=== PATIENT | female | born 1945 | race Hispanic/Latino ===

== ENCOUNTER 2020-08-02 14:49 | Inpatient (IN) | payer MEDICARE ==
[2020-08-02 17:09] LABS: Basophils # (Auto) 0.1 K/mm3 (0.0-0.1); Eosinophils # (Auto) 0.1 K/mm3 (0.0-0.4); Eosinophils % (Auto) 1.1 % (0.0-4.3); Hematocrit 37.6 % (30.3-42.9); Hemoglobin 12.2 gm/dl (10.1-14.3); Lymphocytes # (Auto) 0.9 K/mm3 (1.2-5.4); Lymphocytes % (Auto) 17.6 % (13.4-35.0); Mean Corpuscular HGB Conc 33 % (30-34); Mean Corpuscular Volume 87 fl (79-97); Monocytes # (Auto) 0.5 K/mm3 (0.0-0.8); Monocytes % (Auto) 9.9 % (0.0-7.3); Platelet Count 145 K/mm3 (140-440); Red Blood Count 4.33 M/mm3 (3.65-5.03)
--- NOTE | 2020-08-02 17:16 | XRay Report ---
CHEST 1 VIEW INDICATION / CLINICAL INFORMATION: Chest Pain. COMPARISON: None available. FINDINGS: SUPPORT DEVICES: None. HEART / MEDIASTINUM: Cardiomegaly LUNGS / PLEURA: Mild pulmonary vascular congestion No pneumothorax. ADDITIONAL FINDINGS: No significant additional findings. IMPRESSION: Joaquim farooq with mild pulmonary vascular congestion Signer Name: Amador Conley MD FACR Signed: 08/02/2020 5:12 PM Workstation Name: [id number]
[2020-08-02 17:25] LABS: Albumin 3.4 g/dL (3.9-5); Calcium 8.6 mg/dL (8.4-10.2)
[2020-08-02] MEDS ORDERED: ALBUTEROL 2.5 MG/3 ML NEBU IH PRN (17:37)
[2020-08-02] MEDS ORDERED: ACETAMINOPHEN 325 MG TAB PO PRN ×2 (17:37→17:43)
--- NOTE | 2020-08-02 17:37 | History and Physical Report ---
History of Present Illness Chief complaint: I feel out of breath all the time History of present illness: 74 YO Female with HTN, HLD, Obesity Hypoventilation Syndrome, Insomnia, BLE Cellulitis on oral antibiotic therapy as outpatient presents to ED for evaluation. Pt reports "I feel out of breath". Pt states that she has experienced shortness of breath, decreased exercise tolerance, dyspnea on exertion, dyspnea at rest, lower extremity edema. Patient acknowledges orthopnea as well as paroxysmal nocturnal dyspnea. Patient was seen and evaluated by her linux network administrator and instructed to seek further care at [facility]. Patient transported to [facility] via private vehicle for further care and evaluation of the aforementioned symptoms. The patient was seen and evaluated in the emergency department. All lab and imaging studies reviewed.Patient found to have bilateral lower extremity cellulitis, as well as clinical symptoms consistent with CHF decompensation. Patient admitted to telemetry and initiated on CHF protocol due to increased risk of worsening symptoms. Patient also found to have acute kidney injury, as well as Type II NSTEMI. Patient denies fever, chills, chest pain, palpitation, productive cough, skin rash, recent ill contacts, or known exposure to COVID-19. No prior admission for review. No medication listed at time of admission for reconciliation. Advanced care planning conducted in the emergency department. Cardiology team consulted in ED. Past History Past Medical History: hypertension, hyperlipidemia, other (See HPI) Past Surgical History: cholecystectomy, hysterectomy, tonsillectomy, Other (D&C) Social history: , lives with family Family history: hypertension Medications and Allergies Allergies Allergy/AdvReac Type Severity Reaction Status Date / Time No Known Allergies Allergy Unverified 08/02/20 15:36 Review of Systems Ears, nose, mouth and throat: no ear discharge, no tinnitis, no nose pain, no nasal congestion, no sinus pressure Breasts: no swelling, no mass Cardiovascular: orthopnea, edema, shortness of breath, dyspnea on exertion, paroxysmal nocturnal dyspnea, decreased exercise tolerance, no chest pain, no palpitations, no rapid/irregular heart beat Respiratory: no cough, no excessive sputum, no hemoptysis Gastrointestinal: no abdominal pain, no nausea, no vomiting, no diarrhea, no constipation Genitourinary Female: no pelvic pain, no flank pain, no dysuria, no urinary frequency, no urgency Rectal: no pain, no incontinence, no bleeding Musculoskeletal: no neck stiffness, no neck pain, no shooting arm pain, no arm numbness/tingling, no low back pain Integumentary: no rash, no pruritis, no redness, no sores, no jaundice Neurological: no transient paralysis, no paralysis, no weakness, no seizures, no tremors Psychiatric: no anxiety, no memory loss, no change in sleep habits, no hypersomnia, no disorientation Endocrine: no cold intolerance, no polyphagia, no polydipsia, no polyuria, no nocturia Hematologic/Lymphatic: no easy bruising, no easy bleeding, no lymphadenopathy Allergic/Immunologic: no anaphylaxis Exam - Constitutional Vitals: Temp Pulse Resp BP Pulse Ox 99 F 103 H 20 155/103 97 08/02/20 15:31 08/02/20 15:31 08/02/20 15:31 08/02/20 15:31 08/02/20 15:31 General appearance: Present: mild distress - EENT Eyes: Present: PERRL ENT: hearing intact, clear oral mucosa - Neck Neck: Present: supple, normal ROM - Respiratory Respiratory effort: normal Respiratory: bilateral: diminished, rales - Cardiovascular Heart Sounds: Present: S1 & S2. Absent: rub, click - Extremities Extremities: pulses symmetrical Extremity abnormal: edema Peripheral Pulses: within normal limits - Abdominal General gastrointestinal: Present: soft, non-tender, non-distended, normal bowel sounds Female genitourinary: Present: normal - Integumentary Integumentary: Present: clear, warm, dry - Musculoskeletal Musculoskeletal: gait normal, strength equal bilaterally - Psychiatric Psychiatric: appropriate mood/affect, intact judgment & insight - Neurologic Neurologic: CNII-XII intact, moves all extremities HEART Score - HEART Score Troponin: Troponin T 0.583 ng/mL (0.00-0.029) H* 08/02/20 16:48 Results - Labs CBC & Chem 7: 08/02/20 16:48 08/02/20 16:48 Labs: Abnormal lab results 08/02/20 08/02/20 Range/Units 16:48 16:48 RDW 16.0 H (13.2-15.2) % [place] % (Auto) 9.9 H (0.0-7.3) % Lymph # (Auto) 0.9 L (1.2-5.4) K/mm3 Seg Neutrophils % 70.4 H (40.0-70.0) % Potassium 3.4 L (3.6-5.0) mmol/L BUN 22 H (7-17) mg/dL Creatinine 1.6 H (0.6-1.2) mg/dL Troponin T 0.583 H* (0.00-0.029) ng/mL NT-Pro-B Natriuret Pep 9815 H (0-900) pg/mL Albumin 3.4 L (3.9-5) g/dL Assessment and Plan - Patient Problems (1) CHF (congestive heart failure) Current Visit: No Status: Acute Qualifiers: Heart failure type: systolic Heart failure chronicity: acute Qualified Code(s): I50.21 - Acute systolic (congestive) heart failure Plan to address problem: CHF protocol: Cardiology team consulted, strict I's/O, monitor urine output every shift, daily weight, afterload reduction, echocardiogram ordered and is pending at time of admission, thyroid panel, magnesium level, diuretic therapy, supportive care. (2) SALONI (acute kidney injury) Current Visit: No Status: Acute Plan to address problem: BMP, repeat BMP in a.m., free water intake as tolerated. Monitor urine output every shift, monitor fluid balance. (3) Cellulitis Current Visit: No Status: Acute Plan to address problem: IV antibiotic therapy, supportive care, wound care consulted. (4) NSTEMI (non-ST elevated myocardial infarction) Current Visit: No Status: Acute Plan to address problem: Supportive care, serial cardiac enzymes, cardiology team consulted in the ED. Suspected secondary to CHF. (5) Obesity hypoventilation syndrome Current Visit: No Status: Acute Plan to address problem: Balanced diet, increase physical activity at discharge, supportive care. Outpatient pulmonary follow-up for sleep study. (6) DVT prophylaxis Current Visit: No Status: Acute Plan to address problem: SCD to bilateral lower extremities while in bed, prophylactic anticoagulation (7) Advance care planning Current Visit: No Status: Acute Plan to address problem: Disease education conducted, patient is full code, care plan discussed, prognosis discussed, patient knowledges understanding and agreement with care plan, +30 minutes.
[2020-08-02 17:49] LABS: Chol/HDL Ratio 2.16 %
--- NOTE | 2020-08-02 17:51 | Emergency Department Report ---
ED Shortness of Breath HPI - General Chief Complaint: Medical Clearance Stated Complaint: LFT EYE PAIN Time Seen by Provider: 08/02/20 16:19 Source: patient Mode of arrival: Ambulatory Limitations: No Limitations - History of Present Illness Initial Comments: Chief complaint: "I am being worked up for heart failure." This is a 74-year-old female with history of hypertension, dyslipidemia, obesity, insomnia who presents with leg swelling for the past month. Her new PCP Dr. Reyes Victor referred her to latin teacher Dr. Sheets. Dr. Sheets has initiated outpatient work-up which included Holter monitor and echocardiogram. Patient spoke with Dr. Sheets. She requested diuretic. Dr. Sheets encouraged her to be evaluated in the emergency department for further treatment in supervised diuresis. She has severe swelling from her feet to her groin and both legs.. Due to the pain and discomfort she is just "miserable". She currently denies headache, cough, fever, chest pain, abdominal pain. For the past year she has isolated at home with her . She stated over the last month she has had intermittent fever. Patient has orthopnea and paroxysmal nocturnal dyspnea. Several times throughout the night she feels out of breath while sleeping. She explains that "I have not been a good patient". She has not received medical care since 2012. Her PCP Dr. Albin cobb practice at that time. She did not resume care thereafter. She explains that Now, I am paying the ocampo." Patient also has had significant redness and blistering of the skin. She takes the [id number]-exgofio medications including Tylenol twice a day, aspirin, [employer] sleep aid Patient has a black eye after striking her walker during a fall at home on Friday. MD Complaint: shortness of breath -: Gradual, month(s) (1 month) Severity: moderate Consistency: constant Improves With: nothing Worsens With: exertion Known History Of: congestive heart failure (Patient is being "worked up for heart failure") Context: other (Recent evaluation by new PCP and new latin teacher) Associated Symptoms: lower extremity pain, other (Bilateral leg pain redness swelling) - Related Data Allergies Allergy/AdvReac Type Severity Reaction Status Date / Time No Known Allergies Allergy Unverified 08/02/20 15:36 ED Review of Systems ROS: Stated complaint: LFT EYE PAIN Other details as noted in HPI Comment: All other systems reviewed and negative Constitutional: denies: fever, malaise Respiratory: shortness of breath. denies: cough Cardiovascular: dyspnea on exertion, orthopnea, paroxysmal nocturnal dyspnea. denies: chest pain Skin: rash, lesions ED Past Medical Hx - Past Medical History Previous Medical History?: Yes Hx Hypertension: Yes Additional medical history: Hyperlipidemia - Surgical History Past Surgical History?: Yes Hx Cholecystectomy: Yes Additional Surgical History: Hysterectomy. D&C. Childhood tonsillectomy - Social History Smoking Status: Never Smoker Substance Use Type: None ED Physical Exam - General Limitations: No Limitations General appearance: alert, in no apparent distress, other (Becomes out of breath when speaking several sentences) - Head Head exam: Present: atraumatic, normocephalic - Eye Eye exam: Present: normal appearance - ENT ENT exam: Present: mucous membranes moist - Neck Neck exam: Present: normal inspection - Respiratory Respiratory exam: Present: normal lung sounds bilaterally. Absent: respiratory distress - Cardiovascular Cardiovascular Exam: Present: regular rate, normal rhythm. Absent: systolic murmur, diastolic murmur, rubs, gallop - GI/Abdominal GI/Abdominal exam: Present: soft, normal bowel sounds - Extremities Exam Extremities exam: Present: tenderness, other (Tense nonpitting edema with diffus e erythema from feet to superior portion of thigh, weeping blisters by the pretibial region of both lower extremities with ceballos crusty discharge) - Neurological Exam Neurological exam: Present: alert, oriented X3 - Psychiatric Psychiatric exam: Present: normal affect, normal mood - Skin Skin exam: Present: rash, erythema, vesicles ED Course Vital Signs 08/02/20 15:31 Temperature 99 F Pulse Rate 103 H Respiratory 20 Rate Blood Pressure 155/103 O2 Sat by Pulse 97 Oximetry ED Medical Decision Making - Lab Data Result diagrams: 08/02/20 16:48 08/02/20 16:48 Laboratory Results - last 24 hr 08/02/20 08/02/20 16:48 16:48 WBC 5.0 RBC 4.33 Hgb 12.2 Hct 37.6 MCV 87 MCH 28 MCHC 33 RDW 16.0 H Plt Count 145 Lymph % (Auto) 17.6 [place] % (Auto) 9.9 H Eos % (Auto) 1.1 Baso % (Auto) 1.0 Lymph # (Auto) 0.9 L [place] # (Auto) 0.5 Eos # (Auto) 0.1 Baso # (Auto) 0.1 Seg Neutrophils % 70.4 H Seg Neutrophils # 3.5 Sodium 138 Potassium 3.4 L Chloride 104.2 Carbon Dioxide 23 Anion Gap 14 BUN 22 H Creatinine 1.6 H Estimated GFR 32 BUN/Creatinine Ratio 14 Glucose 99 Calcium 8.6 Total Bilirubin 0.50 AST 23 ALT 13 Alkaline Phosphatase 59 Troponin T 0.583 H* NT-Pro-B Natriuret Pep 9815 H Total Protein 6.5 Albumin 3.4 L Albumin/Globulin Ratio 1.1 Triglycerides 94 Cholesterol 108 LDL Cholesterol Direct 55 HDL Cholesterol 50 Cholesterol/HDL Ratio 2.16 - EKG Data EKG shows normal: sinus rhythm Rate: normal - EKG Data 08/02/20 17:52 EKG obtained 1656 EKG interpreted by me Normal sinus rhythm rate 95 bpm left axis deviation prolonged QTC no ST elevation nonischemic T wave pattern - Radiology Data Radiology results: report reviewed, image reviewed Chest radiograph: Cardiomegaly with mild pulmonary vascular congestion according to radiology impression - Medical Decision Making 1. Acute new onset CHF: Work-up notable for BMP elevated troponin attributed to cardiomyopathy, no indication of acute coronary syndrome or acute ischemic event on presentation. Patient presented with severe volume overload involving her lower extremities with tense edema. 2. 2. Cellulitis, acute stasis dermatitis superinfection: Redness extensive throughout both lower extremities with blisters ceballos discharge staphylococcal and streptococcal coverage with IV clindamycin initiated in the emergency department Patient is admitted to the hospital service. Hospitalist colleague arrange cardiology consultation. Critical care attestation.: If time is entered above; I have spent that time in minutes in the direct care of this critically ill patient, excluding procedure time. ED Disposition Clinical Impression: Acute heart failure, Acute venous stasis dermatitis of both lower extremities, Cellulitis of both lower extremities Disposition: OP ADMIT IP TO THIS HOSP Is pt being admited?: Yes Does the pt Need Aspirin: No Condition: Stable
[2020-08-02 18:36] LABS: Free T4 (Free Thyroxine) 0.8 ng/dL (0.76-1.46)
[2020-08-02] MEDS: FUROSEMIDE 20 MG/2 ML INJ IV SCH (19:00)
[2020-08-02] MEDS: HEPARIN 5,000 UNIT/1 ML VIAL SUB-Q SCH (22:50)
[2020-08-03 05:45] LABS: Calcium 8.9 mg/dL (8.4-10.2)
[2020-08-03] MEDS: FUROSEMIDE 20 MG/2 ML INJ IV SCH ×2 (06:32→17:09)
[2020-08-03] MEDS: HEPARIN 5,000 UNIT/1 ML VIAL SUB-Q SCH ×2 (09:53→22:55)
--- NOTE | 2020-08-03 10:01 | Consultation ---
History of Present Illness Consult date: 08/03/20 Requesting physician: LASHA AUGUSTINE Consult reason: congestive heart failure History of present illness: The pt is a 74 YO female with a past medical history of obesity, BLE cellulitis, obesity. She was recently seen in consult in our office on 07/27/2020 at the referral of her PCP - pt had not seen a physician since 2012. She presented to our office with c/o shortness of breath with exertion and BLE swelling for at l [place] the past 6 months. At that time, she was recommended to present to ED for further eval/management. However, pt declined hospitalization. She underwent tte in our office on 08/01/2020 which showed EF 35-40%, grade III diastolic dysfunction, mod MR, mod pulm HTN with RVSP 56mmHg. Pt reports that her symptoms continued to worsen at home. She developed difficulty ambulating due to progressive leg swelling and her got her a walker to assist in her ambulation. On Friday, she was using her walker at home and tripped over a rug and fell and hit her left eye. She is noted to have significant left eye ecchymosis on evaluation. Pt called our office yesterday with c/o SOB and BLE swelling and "sores" and was referred to ED per our office. She denies any occurrence of chest pain, palpitations, n/v, diaphoresis, dizziness or syncope. Past History Past Medical History: hypertension, hyperlipidemia, other (See HPI) Past Surgical History: cholecystectomy, hysterectomy, tonsillectomy, Other (D&C) Social history: , lives with family Family history: hypertension Medications and Allergies Allergies Allergy/AdvReac Type Severity Reaction Status Date / Time No Known Allergies Allergy Unverified 08/02/20 15:36 Active Meds: Active Medications Acetaminophen (Acetaminophen 325 Mg Tab) 650 mg PO Q4H PRN PRN Reason: Pain MILD(1-3)/Fever >100.5/NOGUERA Last Admin: 08/02/20 22:54 Dose: 650 mg Documented by: Albuterol (Albuterol 2.5 Mg/3 Ml Nebu) 2.5 mg IH Q4HRT PRN PRN Reason: Shortness Of Breath Furosemide (Furosemide 20 Mg/2 Ml Inj) 20 mg IV BID@0600,1800 LIAN Last Admin: 08/03/20 06:32 Dose: 20 mg Documented by: Heparin Sodium (Porcine) (Heparin 5,000 Unit/1 Ml Vial) 5,000 unit SUB-Q Q12HR [facility] Last Admin: 08/03/20 09:53 Dose: 5,000 unit Documented by: Ondansetron HCl (Ondansetron 4 Mg/2 Ml Inj) 4 mg IV Q8H PRN PRN Reason: Nausea And Vomiting Sodium Chloride (Sodium Chloride 0.9% 10 Ml Flush Syringe) 10 ml IV BID [facility] Last Admin: 08/03/20 09:53 Dose: 10 ml Documented by: Sodium Chloride (Sodium Chloride 0.9% 10 Ml Flush Syringe) 10 ml IV PRN PRN PRN Reason: LINE FLUSH Sodium Chloride (Sodium Chloride 0.9% 10 Ml Flush Syringe) 10 ml IV PRN PRN PRN Reason: LINE FLUSH Review of Systems Constitutional: no fever, no chills, no sweats Ears, nose, mouth and throat: no ear pain, no nose pain, no sinus pressure, no sinus pain Cardiovascular: orthopnea, edema, shortness of breath, dyspnea on exertion, paroxysmal nocturnal dyspnea, leg edema, no chest pain, no palpitations, no rapid/irregular heart beat, no syncope, no lightheadedness Respiratory: shortness of breath, dyspnea on exertion, no cough, no congestion, no wheezing, no pain on inspiration Gastrointestinal: no abdominal pain, no nausea, no vomiting, no diarrhea, no constipation, no change in bowel habits Genitourinary Female: no pelvic pain, no flank pain, no dysuria, no urinary frequency, no urgency Musculoskeletal: no neck stiffness, no neck pain, no shooting arm pain, no arm numbness/tingling, no low back pain, no shooting leg pain Integumentary: redness (BLE), sores (BLE) Neurological: no head injury, no paralysis, no weakness, no parathesias, no numbness, no tingling, no seizures, no syncope Psychiatric: no anxiety Endocrine: no cold intolerance, no heat intolerance Hematologic/Lymphatic: no easy bruising, no easy bleeding Allergic/Immunologic: no urticaria Physical Examination Vital Signs Temp Pulse Resp BP Pulse Ox 99 F 103 H 20 155/103 97 08/02/20 15:31 08/02/20 15:31 08/02/20 15:31 08/02/20 15:31 08/02/20 15:31 General appearance: no acute distress HEENT: Positive: PERRL, Normocephaly, Mucus Membranes Moist, Other (left eye ecchymosis noted ) Neck: Positive: neck supple, trachea midline Cardiac: Positive: Reg Rate and Rhythm, S1/S2 Lungs: Positive: Decreased Breath Sounds Neuro: Positive: Grossly Intact Abdomen: Negative: Tender Musculoskeletal: other (BLE sores and redness) Extremities: Present: +4 Edema (BLE) Results 08/02/20 16:48 08/03/20 04:53 Cardiac Enzymes 08/02/20 Range/Units 16:48 AST 23 (5-40) units/L Lipids 08/02/20 Range/Units 16:48 Triglycerides 94 (2-149) mg/dL Cholesterol 108 (50-199) mg/dL HDL Cholesterol 50 (40-59) mg/dL Cholesterol/HDL Ratio 2.16 % CBC 08/02/20 Range/Units 16:48 WBC 5.0 (4.5-11.0) K/mm3 RBC 4.33 (3.65-5.03) M/mm3 Hgb 12.2 (10.1-14.3) gm/dl Hct 37.6 (30.3-42.9) % Plt Count 145 (140-440) K/mm3 Lymph # (Auto) 0.9 L (1.2-5.4) K/mm3 [place] # (Auto) 0.5 (0.0-0.8) K/mm3 Eos # (Auto) 0.1 (0.0-0.4) K/mm3 Baso # (Auto) 0.1 (0.0-0.1) K/mm3 Comprehensive Metabolic Panel 08/02/20 08/03/20 Range/Units 16:48 04:53 Sodium 138 142 (137-145) mmol/L Potassium 3.4 L 4.5 D (3.6-5.0) mmol/L Chloride 104.2 108.8 H (98-107) mmol/L Carbon Dioxide 23 24 (22-30) mmol/L BUN 22 H 22 H (7-17) mg/dL Creatinine 1.6 H 1.6 H (0.6-1.2) mg/dL Glucose 99 89 (65-100) mg/dL Calcium 8.6 8.9 (8.4-10.2) mg/dL AST 23 (5-40) units/L ALT 13 (7-56) units/L Alkaline Phosphatase 59 (35-129) units/L Total Protein 6.5 (6.3-8.2) g/dL Albumin 3.4 L (3.9-5) g/dL - Imaging and Cardiology Echo: report reviewed EKG: report reviewed, image reviewed EKG interpretations - Telemetry EKG Rhythm: Sinus Rhythm - EKG Sinus rhythms and dysrhythmias: sinus rhythm Assessment and Plan tte reviewed - EF 30-35%, restrictive diastolic filling, LA mildly dilated, RV mildly dilated, mild AR, mod MR, mod pulm HTN with RVSP 63mmHg. Agree with IV lasix. F/u BMP in AM. Initiate coreg. Consider addition of ACEI/ARB if renal function permits. CE elevation appears c/w NSTEMI type II. Initiate ASA, cont to trend Frank and f/u ECG in AM. Will plan for ischemic evaluation (likely stress testing) for eval of CMP etiology once medically stabilized. Management of BLE cellulitis per primary team. Will follow. The patient has been seen in conjunction with Dr. Boris Sheets who agrees with the assessment and plan of care. - Patient Problems (1) Acute HFrEF (heart failure with reduced ejection fraction) Current Visit: Yes Status: Acute (2) Cardiomyopathy Current Visit: Yes Status: Chronic (3) SALONI (acute kidney injury) Current Visit: Yes Status: Acute (4) NSTEMI (non-ST elevated myocardial infarction) Current Visit: Yes Status: Acute Plan to address problem: suspect type II (5) Cellulitis Current Visit: Yes Status: Acute (6) Obesity Current Visit: Yes Status: Chronic (7) Obesity hypoventilation syndrome Current Visit: Yes Status: Chronic (8) Former tobacco use Current Visit: Yes Status: Chronic (9) Moderate mitral regurgitation Current Visit: Yes Status: Chronic (10) Pulmonary hypertension Current Visit: Yes Status: Chronic
[2020-08-03] MEDS: carvediloL 3.125 MG TAB PO SCH ×2 (11:47→22:55)
[2020-08-03] MEDS: ASPIRIN 325 MG TAB PO SCH (11:47)
--- NOTE | 2020-08-03 16:28 | Progress Note ---
Assessment and Plan --Acute systolic CHF (congestive heart failure) exacerbation Cont CHF protocol: Cardiology team consulted, strict I's/O, monitor urine output every shift, daily weight, afterload reduction, diuretic therapy, supportive care. follow echocardiogram, thyroid panel, magnesium level -- SALONI (acute kidney injury) likely due to cardiorenal syndrome vs vasomotor nephropathy -cannot r/o CKD repeat BMP in a.m., Monitor urine output every shift, monitor fluid balance. -- b/l LE Cellulitis with stasis ulcer IV antibiotic therapy, supportive care, wound care consulted. --NSTEMI (non-ST elevated myocardial infarction) Supportive care, serial cardiac enzymes, cardiology team consulted in the ED. Suspected type 2 secondary to CHF. -- Obesity hypoventilation syndrome Balanced diet, increase physical activity at discharge, supportive care. Outpatient pulmonary follow-up for sleep study. -- DVT prophylaxis SCD to bilateral lower extremities while in bed, prophylactic anticoagulation --patient is full code, care plan discussed, prognosis discussed, patient knowledges understanding and agreement with care plan, +30 minutes. Daily Course: 08/03: cont chf protocol with diuresis/monitor ins/os/ daily wt. cont iv abx for cellulitis. follow cardiology recommendation. provide wound care. Subjective Date of service: 08/03/20 Interval history: Patient seen and examined c/o SOB on minimal exertion and b/l LE erythrema and swelling tolerating diet denies chest pain Objective - Exam Narrative Exam: General appearance: no acute distress, morbidly obese HEENT: PERRL, Normocephaly, moist Mucus Membranes Moist, Other (left eye ecchymosis noted ) Neck: neck supple, trachea midline Cardiac: Reg Rate and Rhythm, S1/S2 +ve Lungs: b/l Decreased Breath Sounds Neuro: Grossly Intact, no motor deficit Abdomen: no Tenderness, obese Musculoskeletal: + (BLE sores and redness) Extremities: +4 Edema (BLE) - Constitutional Vitals: Vital Signs - 12hr 08/03/20 10:40 Temperature 98.3 F Pulse Rate 98 H Blood Pressure 104/54 O2 Sat by Pulse 92 Oximetry - Labs CBC & Chem 7: 08/07/20 04:04 08/07/20 04:04 Labs: Abnormal lab results 08/02/20 08/02/20 08/02/20 Range/Units 16:48 16:48 17:59 RDW 16.0 H (13.2-15.2) % [place] % (Auto) 9.9 H (0.0-7.3) % Lymph # (Auto) 0.9 L (1.2-5.4) K/mm3 Seg Neutrophils % 70.4 H (40.0-70.0) % Potassium 3.4 L (3.6-5.0) mmol/L Chloride (98-107) mmol/L BUN 22 H (7-17) mg/dL Creatinine 1.6 H (0.6-1.2) mg/dL Magnesium 1.50 L (1.7-2.3) mg/dL Troponin T 0.583 H* (0.00-0.029) ng/mL NT-Pro-B Natriuret Pep 9815 H (0-900) pg/mL Albumin 3.4 L (3.9-5) g/dL TSH (0.270-4.200) mlU/mL 08/02/20 08/02/20 08/03/20 Range/Units 17:59 20:46 00:12 RDW (13.2-15.2) % [place] % (Auto) (0.0-7.3) % Lymph # (Auto) (1.2-5.4) K/mm3 Seg Neutrophils % (40.0-70.0) % Potassium (3.6-5.0) mmol/L Chloride (98-107) mmol/L BUN (7-17) mg/dL Creatinine (0.6-1.2) mg/dL Magnesium (1.7-2.3) mg/dL Troponin T 0.593 H* 0.600 H* (0.00-0.029) ng/mL NT-Pro-B Natriuret Pep (0-900) pg/mL Albumin (3.9-5) g/dL TSH 17.420 H (0.270-4.200) mlU/mL 08/03/20 Range/Units 04:53 RDW (13.2-15.2) % [place] % (Auto) (0.0-7.3) % Lymph # (Auto) (1.2-5.4) K/mm3 Seg Neutrophils % (40.0-70.0) % Potassium (3.6-5.0) mmol/L Chloride 108.8 H (98-107) mmol/L BUN 22 H (7-17) mg/dL Creatinine 1.6 H (0.6-1.2) mg/dL Magnesium (1.7-2.3) mg/dL Troponin T (0.00-0.029) ng/mL NT-Pro-B Natriuret Pep (0-900) pg/mL Albumin (3.9-5) g/dL TSH (0.270-4.200) mlU/mL HEART Score - HEART Score Troponin: Troponin T 0.600 ng/mL (0.00-0.029) H* 08/03/20 00:12
[2020-08-03] MEDS: CLINDAMYCIN 600 MG/50 mL 600 MG/50 ML BAG IV SCH (17:45)
[2020-08-04] MEDS: CLINDAMYCIN 600 MG/50 mL 600 MG/50 ML BAG IV SCH ×3 (01:00→17:02)
[2020-08-04 06:41] LABS: Calcium 8.5 mg/dL (8.4-10.2)
[2020-08-04] MEDS: FUROSEMIDE 20 MG/2 ML INJ IV SCH (06:50)
[2020-08-04] MEDS: ASPIRIN 325 MG TAB PO SCH (09:18)
[2020-08-04] MEDS: carvediloL 3.125 MG TAB PO SCH (09:18)
[2020-08-04] MEDS: HEPARIN 5,000 UNIT/1 ML VIAL SUB-Q SCH ×2 (09:20→22:54)
--- NOTE | 2020-08-04 09:59 | Progress Note ---
Assessment and Plan BLE edema is gradually improving. Renal indices noted to be trending upwards - decrease IV lasix to daily dosing and f/u BMP in AM. Optimize BPs and HR - increase coreg. Consider addition of ACEI/ARB if renal function permits. CE elevation appears c/w NSTEMI type II. Pt denies any occurrence of chest pain. Cont ASA, statin, BB. Will plan for ischemic evaluation (likely stress testing) for eval of CMP etiology once medically stabilized. Cont management of BLE cellulitis per primary team. The patient has been seen in conjunction with Dr. Boris Sheets who agrees with the assessment and plan of care. - Patient Problems (1) Acute HFrEF (heart failure with reduced ejection fraction) Current Visit: Yes Status: Acute (2) Cardiomyopathy Current Visit: Yes Status: Chronic (3) SALONI (acute kidney injury) Current Visit: Yes Status: Acute (4) NSTEMI (non-ST elevated myocardial infarction) Current Visit: Yes Status: Acute Plan to address problem: suspect type II (5) Cellulitis Current Visit: Yes Status: Acute (6) Obesity Current Visit: Yes Status: Chronic (7) Obesity hypoventilation syndrome Current Visit: Yes Status: Chronic (8) Former tobacco use Current Visit: Yes Status: Chronic (9) Moderate mitral regurgitation Current Visit: Yes Status: Chronic (10) Pulmonary hypertension Current Visit: Yes Status: Chronic Subjective Date of service: 08/04/20 Principal diagnosis: HF Interval history: pt resting in bed, feeling somewhat better, BLE swelling gradually improving. tele reviewed - in SR HR 90s. Objective Last Vital Signs Temp 98.9 F 08/04/20 04:22 Pulse 87 08/04/20 09:18 Resp 18 08/04/20 04:22 BP 151/84 08/04/20 09:18 Pulse Ox 92 08/04/20 04:22 - Physical Examination HEENT: Positive: PERRL, Normocephaly, Mucus Membranes Moist, Other (left eye ecchymosis noted ) Neck: Positive: neck supple, trachea midline Cardiac: Positive: Reg Rate and Rhythm, S1/S2 Lungs: Positive: Decreased Breath Sounds Neuro: Positive: Grossly Intact Abdomen: Negative: Tender Musculoskeletal: other (BLE sores and redness) Extremities: Present: +4 Edema (BLE) - Labs and Meds Comprehensive Metabolic Panel 08/04/20 Range/Units 05:46 Sodium 140 (137-145) mmol/L Potassium 3.8 (3.6-5.0) mmol/L Chloride 106.7 (98-107) mmol/L Carbon Dioxide 23 (22-30) mmol/L BUN 24 H (7-17) mg/dL Creatinine 1.7 H (0.6-1.2) mg/dL Glucose 124 H (65-100) mg/dL Calcium 8.5 (8.4-10.2) mg/dL - Imaging and Cardiology EKG: report reviewed, image reviewed Echo: report reviewed (EF 30-35%, restrictive diastolic filling, LA mildly dilated, RV mildly dilated, mild AR, mod MR, mod pulm HTN with RVSP 63mmHg. ) - Telemetry EKG Rhythm: Sinus Rhythm - EKG Sinus rhythms and dysrhythmias: sinus rhythm
[2020-08-04] MEDS ORDERED: carvediloL 3.125 MG TAB PO SCH (10:00)
[2020-08-04] MEDS ORDERED: carvediloL 6.25 MG TAB PO SCH (11:00)
[2020-08-04] MEDS ORDERED: FUROSEMIDE 20 MG/2 ML INJ IV SCH (11:00)
--- NOTE | 2020-08-04 16:59 | Progress Note ---
Assessment and Plan --Acute systolic CHF (congestive heart failure) exacerbation Cont CHF protocol: Cardiology team consulted, strict I's/O, monitor urine output every shift, daily weight, afterload reduction, diuretic therapy, supportive care. follow echocardiogram, thyroid panel, magnesium level -- SALONI (acute kidney injury) likely due to cardiorenal syndrome vs vasomotor nephropathy -cannot r/o CKD repeat BMP in a.m., Monitor urine output every shift, monitor fluid balance. -- b/l LE Cellulitis with stasis ulcer IV antibiotic therapy, supportive care, wound care consulted. --NSTEMI (non-ST elevated myocardial infarction) Supportive care, serial cardiac enzymes, cardiology team consulted in the ED. Suspected type 2 secondary to CHF. -- Obesity hypoventilation syndrome Balanced diet, increase physical activity at discharge, supportive care. Outpatient pulmonary follow-up for sleep study. -- DVT prophylaxis SCD to bilateral lower extremities while in bed, prophylactic anticoagulation --patient is full code, care plan discussed, prognosis discussed, patient knowledges understanding and agreement with care plan, +30 minutes. Daily Course: 08/03: cont chf protocol with diuresis/monitor ins/os/ daily wt. cont iv abx for cellulitis. follow cardiology recommendation. provide wound care. 08/04: Improved lower extremity erythremia, continue IV antibiotics. Continue CHF protocol. Possible discharge in 1 to 2 days if cleared by cardiology Subjective Date of service: 08/04/20 Principal diagnosis: HF Interval history: Patient seen and examined c/o SOB on minimal exertion and b/l LE erythrema and swelling tolerating diet denies chest pain Objective - Exam Narrative Exam: General appearance: no acute distress, morbidly obese HEENT: PERRL, Normocephaly, moist Mucus Membranes Moist, Other (left eye ecchymosis noted ) Neck: neck supple, trachea midline Cardiac: Reg Rate and Rhythm, S1/S2 +ve Lungs: b/l Decreased Breath Sounds Neuro: Grossly Intact, no motor deficit Abdomen: no Tenderness, obese Musculoskeletal: + (BLE sores and redness) Extremities: +4 Edema (BLE) - Constitutional Vitals: Vital Signs - 12hr 08/04/20 08/04/20 08/04/20 05:00 09:18 14:40 Temperature 98.0 F Pulse Rate 89 87 89 Blood Pressure 151/84 117/72 O2 Sat by Pulse 94 Oximetry - Labs CBC & Chem 7: 08/07/20 04:04 08/07/20 04:04 Labs: Abnormal lab results 08/04/20 Range/Units 05:46 BUN 24 H (7-17) mg/dL Creatinine 1.7 H (0.6-1.2) mg/dL Glucose 124 H (65-100) mg/dL Troponin T 0.661 H* (0.00-0.029) ng/mL HEART Score - HEART Score Troponin: Troponin T 0.661 ng/mL (0.00-0.029) H* 08/04/20 05:46
--- NOTE | 2020-08-04 19:31 | Consultation ---
History of Present Illness - Reason for Consult Consult date: 08/04/20 acute renal failure - History of Present Illness The patient is a 74 YO female with history significant for Morbid obesity, HTN, HLD, HFrEF, mod pulm HTN with RVSP 56mmHg and chronic BLE cellulitis who presented to [facility] ED 08/02 with c/o worsening bilateral leg swelling. She reports associated pain and discomfort which has been getting worse. She also reports sob, orthopnea and paroxysmal nocturnal dyspnea. She denies headache, cough, fever, chills, cough, chest pain, N, V, D or abdominal pain. For the past year she has isolated at home with her . Pt had not seen a physician since 2012 until few days ago when she saw Therapist Phys. She developed difficulty ambulating due to progressive leg swelling and her got her a walker to assist in her ambulation. On 07/30, she was using her walker at home and tripped over a rug and fell and hit her left eye. Labs significant for Creat 1.7, BUN 24 and Troponin 0.66. Nephrology was consulted for further evaluation. Past History Past Medical History: heart failure, hypertension, hyperlipidemia, other (See HPI) Past Surgical History: cholecystectomy, hysterectomy, tonsillectomy, Other (D&C) Social history: , lives with family Family history: hypertension Medications and Allergies Allergies Allergy/AdvReac Type Severity Reaction Status Date / Time No Known Allergies Allergy Unverified 08/02/20 15:36 Active Meds: Active Medications Acetaminophen (Acetaminophen 325 Mg Tab) 650 mg PO Q4H PRN PRN Reason: Pain MILD(1-3)/Fever >100.5/NOGUERA Last Admin: 08/02/20 22:54 Dose: 650 mg Documented by: Albuterol (Albuterol 2.5 Mg/3 Ml Nebu) 2.5 mg IH Q4HRT PRN PRN Reason: Shortness Of Breath Aspirin (Aspirin 325 Mg Tab) 325 mg PO QDAY [facility] Last Admin: 08/04/20 09:18 Dose: 325 mg Documented by: Atorvastatin Calcium (Atorvastatin 20 Mg Tab) 20 mg PO QHS LIAN Carvedilol (Carvedilol 6.25 Mg Tab) 6.25 mg PO BID [facility] Furosemide (Furosemide 40 Mg/4 Ml Inj) 40 mg IV QDAY [facility] Heparin Sodium (Porcine) (Heparin 5,000 Unit/1 Ml Vial) 5,000 unit SUB-Q Q12HR [facility] Last Admin: 08/04/20 09:20 Dose: 5,000 unit Documented by: Clindamycin HCl (Cleocin 600 Mg/50 Ml) 600 mg in 50 mls @ 100 mls/hr IV Q8H [facility]; Protocol Last Admin: 08/04/20 17:02 Dose: 100 mls/hr Documented by: Ondansetron HCl (Ondansetron 4 Mg/2 Ml Inj) 4 mg IV Q8H PRN PRN Reason: Nausea And Vomiting Sodium Chloride (Sodium Chloride 0.9% 10 Ml Flush Syringe) 10 ml IV BID [facility] Last Admin: 08/04/20 09:21 Dose: 10 ml Documented by: Sodium Chloride (Sodium Chloride 0.9% 10 Ml Flush Syringe) 10 ml IV PRN PRN PRN Reason: LINE FLUSH Review of Systems Constitutional: other (difficulty in ambulation), no weight loss, no weight gain, no fever, no chills Breasts: deferred Cardiovascular: orthopnea, edema, shortness of breath, dyspnea on exertion, paroxysmal nocturnal dyspnea, high blood pressure, leg edema, no chest pain, no palpitations, no syncope, no lightheadedness Respiratory: shortness of breath, dyspnea on exertion, no cough, no hemoptysis Gastrointestinal: no abdominal pain, no nausea, no vomiting, no diarrhea, no melena Genitourinary Female: no dysuria, no hematuria Rectal: no bleeding Integumentary: no rash Neurological: no syncope, no convulsions, no aphasia Exam - Vital Signs Vital signs: Vital Signs Temp Pulse Resp BP Pulse Ox 99 F 103 H 20 155/103 97 08/02/20 15:31 08/02/20 15:31 08/02/20 15:31 08/02/20 15:31 08/02/20 15:31 Results - Lab Results 08/02/20 16:48 08/04/20 05:46 Most recent lab results Calcium 8.5 mg/dL (8.4-10.2) 08/04/20 05:46 Magnesium 1.50 mg/dL (1.7-2.3) L 08/02/20 17:59 Assessment and Plan 1. Acute kidney injury: SALONI in the setting of decompensated CHF. Baseline renal function is unknown, suspect CKD. Urine studies and Renal US ordered. Monitor renal function. Creatinine level is stable since admission. Avoid nephrotoxic agents. Meds dosage based on GFR. 2. FEN: Volume overload, diuretics. Monitor lytes. 3. Acute decompensated CHF: Strict I's and O's. Echocardiogram (08/01/2020) showed EF 35-40%, grade III diastolic dysfunction and pulmonary HTN. Followed by Cards. 4. NSTEMI: Followed by Cards. 5. LE Cellulitis: Clindamycin. 6. HTN: Monitor BP. 7. OHS: Monitor. Subjective: Patient was seen and examined at the bedside. Examination: General appearance: obese, well-developed, appears stated age, no distress HEENT: ATNC, Pupils equal Neck: Trachea midline Respiratory: faint rales heard Cardiology: regular, S1S2, no murmur Gastrointestinal: normoactive bowel sounds, no tenderness, not distended Integumentary: warm and dry, no obvious rash Neurologic: alert, conversing, able to move extremities Ext: 2+ LE pitting edema noted She is noted to have significant left eye ecchymosis on evaluation.
[2020-08-04] MEDS: MELATONIN 5 MG TAB PO PRN (22:54)
[2020-08-04] MEDS: ALUM-MAG HYDROXIDE-SIMETHICONE 200-200-20MG/5ML ORAL LIQD 30 ML PO PRN (22:54)
[2020-08-04] MEDS: carvediloL 6.25 MG TAB PO SCH (22:54)
[2020-08-05] MEDS: CLINDAMYCIN 600 MG/50 mL 600 MG/50 ML BAG IV SCH ×3 (00:33→17:49)
[2020-08-05 05:26] LABS: Calcium 8.7 mg/dL (8.4-10.2)
[2020-08-05] MEDS: ONDANSETRON 4 MG/2 ML INJ IV PRN (06:26)
[2020-08-05] MEDS ORDERED: FUROSEMIDE 20 MG/2 ML INJ IV SCH ×2 (10:00)
[2020-08-05] MEDS: carvediloL 6.25 MG TAB PO SCH ×2 (10:09→22:42)
[2020-08-05] MEDS: FUROSEMIDE 40 MG/4 ML INJ IV SCH (10:09)
[2020-08-05] MEDS: ASPIRIN 325 MG TAB PO SCH (10:09)
[2020-08-05] MEDS: HEPARIN 5,000 UNIT/1 ML VIAL SUB-Q SCH ×2 (10:15→22:42)
--- NOTE | 2020-08-05 11:00 | Progress Note ---
Assessment and Plan 74-year-old female with moderate LV dysfunction cellulitis obesity hypoventilation non-ST elevation ME type II renal insufficiency is on IV diuretics and Coreg on aspirin statin medication once medically stable consider ischemic evaluation - Patient Problems (1) Morbid obesity Current Visit: Yes Status: Chronic (2) SALONI (acute kidney injury) Current Visit: Yes Status: Acute (3) Acute HFrEF (heart failure with reduced ejection fraction) Current Visit: Yes Status: Acute (4) Cellulitis Current Visit: Yes Status: Acute Qualifiers: Site of cellulitis of extremity: lower extremity Laterality: right (5) NSTEMI (non-ST elevated myocardial infarction) Current Visit: Yes Status: Acute (6) Cardiomyopathy Current Visit: Yes Status: Chronic Qualifiers: Cardiomyopathy type: dilated Qualified Code(s): I42.0 - Dilated cardiomyopathy (7) Moderate mitral regurgitation Current Visit: Yes Status: Chronic (8) Obesity hypoventilation syndrome Current Visit: Yes Status: Chronic (9) Pulmonary hypertension Current Visit: Yes Status: Chronic Subjective Date of service: 08/05/20 Principal diagnosis: HF Interval history: Shortness of breath has improved swelling has improved Objective Vital Signs Temp Pulse Pulse Pulse Resp BP BP 08/05/20 07:50 97.7 F 81 24 128/77 08/05/20 05:00 85 08/05/20 03:45 97.9 F 85 20 129/84 08/05/20 00:24 98.0 F 81 18 107/80 08/04/20 22:54 89 127/80 08/04/20 22:00 90 90 20 08/04/20 21:44 08/04/20 21:00 90 08/04/20 20:00 97.7 F 90 20 127/80 08/04/20 14:40 98.0 F 89 117/72 Pulse Ox 08/05/20 07:50 91 08/05/20 05:00 08/05/20 03:45 95 08/05/20 00:24 92 08/04/20 22:54 08/04/20 22:00 95 08/04/20 21:44 97 08/04/20 21:00 08/04/20 20:00 93 08/04/20 14:40 94 - Physical Examination General: No Apparent Distress HEENT: Positive: PERRL, Normocephaly, Mucus Membranes Moist, Other (left eye ecchymosis noted ) Neck: Positive: neck supple, trachea midline Cardiac: Positive: Reg Rate and Rhythm Lungs: Positive: clear to auscultation Neuro: Positive: Grossly Intact Abdomen: Negative: Tender Musculoskeletal: other (BLE sores and redness) Extremities: Present: +2 Edema - Labs and Meds Comprehensive Metabolic Panel 08/05/20 Range/Units 04:07 Sodium 137 (137-145) mmol/L Potassium 3.4 L (3.6-5.0) mmol/L Chloride 103.6 (98-107) mmol/L Carbon Dioxide 22 (22-30) mmol/L BUN 23 H (7-17) mg/dL Creatinine 1.6 H (0.6-1.2) mg/dL Glucose 116 H (65-100) mg/dL Calcium 8.7 (8.4-10.2) mg/dL - Imaging and Cardiology EKG: report reviewed, image reviewed Echo: report reviewed (EF 30-35%, restrictive diastolic filling, LA mildly dilated, RV mildly dilated, mild AR, mod MR, mod pulm HTN with RVSP 63mmHg. ) - Telemetry EKG Rhythm: Sinus Rhythm - EKG Sinus rhythms and dysrhythmias: sinus rhythm
[2020-08-05] MEDS ORDERED: POTASSIUM CHLORIDE ER 20 MEQ TAB PO ONE (11:01)
[2020-08-05 11:16] LABS: Bilirubin,Urine NEG (Negative); Blood,Urine NEG (Negative); Color,Urine Yellow (Yellow); Hyaline Casts,Urine 13 /LPF; Mucus,Urine FEW /HPF; Urobilinogen,Urine < 2.0 mg/dL (<2.0)
[2020-08-05 11:29] LABS: Creatinine,Urine 183.1 mg/dL (0.1-20.0); Protein/Creatinine Ratio,Urine 0.32
--- NOTE | 2020-08-05 12:08 | Progress Note ---
Assessment and Plan --Acute systolic CHF (congestive heart failure) exacerbation Cont CHF protocol: Cardiology team consulted, strict I's/O, monitor urine output every shift, daily weight, afterload reduction, diuretic therapy, supportive care. Echocardiogram (08/01/2020) showed EF 35-40%, grade III diastolic dysfunction and pulmonary HTN. -- SALONI (acute kidney injury) likely due to cardiorenal syndrome vs vasomotor nephropathy -cannot r/o CKD repeat BMP in a.m., Monitor urine output every shift, monitor fluid balance. -- b/l LE Cellulitis with stasis ulcer IV antibiotic therapy, supportive care, wound care consulted. --NSTEMI (non-ST elevated myocardial infarction) Supportive care, serial cardiac enzymes, cardiology team consulted in the ED. Suspected type 2 secondary to CHF. -- Obesity hypoventilation syndrome Balanced diet, increase physical activity at discharge, supportive care. Outpatient pulmonary follow-up for sleep study. -- DVT prophylaxis SCD to bilateral lower extremities while in bed, prophylactic anticoagulation --patient is full code, care plan discussed, prognosis discussed, patient knowledges understanding and agreement with care plan, +30 minutes. Daily Course: 08/03: cont chf protocol with diuresis/monitor ins/os/ daily wt. cont iv abx for cellulitis. follow cardiology recommendation. provide wound care. 08/04: Improved lower extremity erythremia, continue IV antibiotics. Continue CHF protocol. Possible discharge in 1 to 2 days if cleared by cardiology 08/05: Continue IV antibiotics, continue IV Lasix. Cardiology planning for ischemia evaluation. Will follow recommendation. Renal function stable, nephrology following Subjective Date of service: 08/05/20 Principal diagnosis: HF Interval history: Patient seen and examined Patient has improved SOB, b/l LE erythrema and swelling tolerating diet denies chest pain Objective - Exam Narrative Exam: General appearance: no acute distress, morbidly obese HEENT: PERRL, Normocephaly, moist Mucus Membranes Moist, Other (left eye ecchymosis noted ) Neck: neck supple, trachea midline Cardiac: Reg Rate and Rhythm, S1/S2 +ve Lungs: b/l Decreased Breath Sounds Neuro: Grossly Intact, no motor deficit Abdomen: no Tenderness, obese Musculoskeletal: + (BLE sores and redness) Extremities: +3 Edema (BLE) - Constitutional Vitals: Vital Signs - 12hr 02/08/05/20 08/05/20 00:24 03:45 05:00 Temperature 98.0 F 97.9 F Pulse Rate 81 85 85 Respiratory 18 20 Rate Blood Pressure 107/80 129/84 Blood Pressure [Right] O2 Sat by Pulse 92 95 Oximetry 08/05/20 08/05/20 07:50 10:00 Temperature 97.7 F Pulse Rate 81 81 Respiratory 24 Rate Blood Pressure Blood Pressure 128/77 [Right] O2 Sat by Pulse 91 Oximetry - Labs CBC & Chem 7: 08/07/20 04:04 08/07/20 04:04 Labs: Abnormal lab results 08/05/20 08/05/20 08/05/20 Range/Units 04:07 04:07 11:00 Potassium 3.4 L (3.6-5.0) mmol/L BUN 23 H (7-17) mg/dL Creatinine 1.6 H (0.6-1.2) mg/dL Glucose 116 H (65-100) mg/dL Troponin T 0.551 H* (0.00-0.029) ng/mL PTH Intact 140.6 H (15-65) pg/mL Urine WBC (Auto) 15.0 H (0.0-6.0) /HPF Urine Creatinine (0.1-20.0) mg/dL Urine Total Protein (5-11.8) mg/dL 08/05/20 Range/Units 11:00 Potassium (3.6-5.0) mmol/L BUN (7-17) mg/dL Creatinine (0.6-1.2) mg/dL Glucose (65-100) mg/dL Troponin T (0.00-0.029) ng/mL PTH Intact (15-65) pg/mL Urine WBC (Auto) (0.0-6.0) /HPF Urine Creatinine 183.1 H (0.1-20.0) mg/dL Urine Total Protein 59 H (5-11.8) mg/dL HEART Score - HEART Score Troponin: Troponin T 0.551 ng/mL (0.00-0.029) H* 08/05/20 04:07
--- NOTE | 2020-08-05 13:54 | Ultrasound Report ---
ULTRASOUND RENAL INDICATION: Acute renal failure.. COMPARISON: No relevant prior imaging study available. FINDINGS: RIGHT KIDNEY: Size: 11.6 cm. Echogenicity: Normal. Cortical thickness: Normal. Stones: None. Hydronephrosis: None. Cyst or mass: None. LEFT KIDNEY: Size: 11.9 cm. Echogenicity: Normal. Cortical thickness: Normal. Stones: None. Hydronephrosis: None. Cyst or mass: None. Urinary Bladder: No significant abnormality. Free Fluid: None. Additional Findings: None. IMPRESSION 1. No acute sonographic abnormality of the kidneys. Signer Name: Jese Billingsley MD Signed: 08/05/2020 1:50 PM Workstation Name: [id number]
--- NOTE | 2020-08-05 15:47 | Progress Note ---
Assessment and Plan 1. Acute kidney injury: SALONI in the setting of decompensated CHF. Baseline renal function is unknown, suspect CKD. UA bland. Renal US negative for hydro. Monitor renal function. Creatinine level is stable since admission. Avoid nephrotoxic agents. Meds dosage based on GFR. 2. FEN: Volume overload, diuretics. Monitor lytes. 3. Acute decompensated CHF: Strict I's and O's. Echocardiogram (08/01/2020) showed EF 35-40%, grade III diastolic dysfunction and pulmonary HTN. Followed by Cards. 4. NSTEMI: Followed by Cards. 5. LE Cellulitis: Clindamycin. 6. HTN: Monitor BP. 7. OHS: Monitor. Subjective: Patient was seen and examined at the bedside. Doing ok. Examination: General appearance: obese, well-developed, appears stated age, no distress HEENT: ATNC, Pupils equal Neck: Trachea midline Respiratory: ctab Cardiology: regular, S1S2, no murmur Gastrointestinal: obese, normoactive bowel sounds, no tenderness, not distended Integumentary: R leg dressing, L leg few scabs Neurologic: alert, conversing, able to move extremities Ext: 2+ LE pitting edema noted She is noted to have significant left eye ecchymosis on evaluation. Subjective Date of service: 08/05/20 Principal diagnosis: HF Objective - Vital Signs Vital signs: Vital Signs - 12hr 08/05/20 08/05/20 08/05/20 05:00 07:50 10:00 Temperature 97.7 F Pulse Rate 85 81 81 Respiratory 24 Rate Blood Pressure 128/77 [Right] O2 Sat by Pulse 91 95 Oximetry - Lab 08/02/20 16:48 08/05/20 04:07 Most recent lab results Calcium 8.7 mg/dL (8.4-10.2) 08/05/20 04:07 Phosphorus 3.70 mg/dL (2.5-4.5) 08/05/20 04:07 Magnesium 1.70 mg/dL (1.7-2.3) 08/05/20 04:07 Urine Creatinine 183.1 mg/dL (0.1-20.0) H 08/05/20 11:00 Urine Sodium 73 mmol/L 08/05/20 11:00 Urine Total Protein 59 mg/dL (5-11.8) H 08/05/20 11:00 Medications & Allergies - Medications Allergies/Adverse Reactions: Allergies No Known Allergies Allergy (Unverified 08/02/20 15:36) Active Medications: Generic Name Dose Route Start Last Admin Trade Name Freq PRN Reason Stop Dose Admin Acetaminophen 650 mg 08/02/20 17:37 08/02/20 22:54 Acetaminophen 325 Mg Tab PO 650 mg Q4H PRN Administration Pain MILD(1-3)/Fever >100.5/NOGUERA Al Hydrox/Mg Hydrox/Simethicone 30 ml 08/04/20 20:58 08/04/20 22:54 Alum-Mag Hydroxide-Simethicone [id number]/5ml Oral Liqd 30 Ml PO 30 ml Q4H PRN Administration Indigestion Albuterol 2.5 mg 08/02/20 17:37 Albuterol 2.5 Mg/3 Ml Nebu IH Q4HRT PRN Shortness Of Breath Aspirin 325 mg 08/03/20 11:00 08/05/20 10:09 Aspirin 325 Mg Tab PO 325 mg QDAY LIAN Administration Atorvastatin Calcium 20 mg 08/04/20 22:00 08/04/20 22:54 Atorvastatin 20 Mg Tab PO 20 mg QHS LIAN Administration Carvedilol 6.25 mg 08/04/20 22:00 08/05/20 10:09 Carvedilol 6.25 Mg Tab PO 6.25 mg BID LIAN Administration Furosemide 40 mg 08/05/20 10:00 08/05/20 10:09 Furosemide 40 Mg/4 Ml Inj IV 40 mg QDAY LIAN Administration Heparin Sodium (Porcine) 5,000 unit 08/02/20 22:00 08/05/20 10:15 Heparin 5,000 Unit/1 Ml Vial SUB-Q 5,000 unit Q12HR LIAN Administration Clindamycin HCl 600 mg in 50 mls @ 100 mls/hr 08/03/20 17:00 08/05/20 10:14 Cleocin 600 Mg/50 Ml IV 100 mls/hr Q8H LIAN Administration Protocol Melatonin 5 mg 08/04/20 20:58 08/04/20 22:54 Melatonin 5 Mg Tab PO 5 mg QHS PRN Administration Sleep Ondansetron HCl 4 mg 08/02/20 17:37 08/05/20 06:26 Ondansetron 4 Mg/2 Ml Inj IV 4 mg Q8H PRN Administration Nausea And Vomiting Sodium Chloride 10 ml 08/02/20 22:00 08/05/20 10:09 Sodium Chloride 0.9% 10 Ml Flush Syringe IV 10 ml BID LIAN Administration Sodium Chloride 10 ml 08/02/20 17:37 Sodium Chloride 0.9% 10 Ml Flush Syringe IV PRN PRN LINE FLUSH
[2020-08-05] MEDS: ALUM-MAG HYDROXIDE-SIMETHICONE 200-200-20MG/5ML ORAL LIQD 30 ML PO PRN ×2 (17:49→22:48)
[2020-08-05] MEDS: MELATONIN 5 MG TAB PO PRN (22:42)
[2020-08-06] MEDS: CLINDAMYCIN 600 MG/50 mL 600 MG/50 ML BAG IV SCH ×3 (02:41→17:04)
[2020-08-06] MEDS: ONDANSETRON 4 MG/2 ML INJ IV PRN ×2 (05:12→21:51)
[2020-08-06] MEDS: ALUM-MAG HYDROXIDE-SIMETHICONE 200-200-20MG/5ML ORAL LIQD 30 ML PO PRN ×2 (05:12→21:51)
[2020-08-06 05:48] LABS: Calcium 8.7 mg/dL (8.4-10.2)
--- NOTE | 2020-08-06 10:00 | Progress Note ---
Assessment and Plan 74-year-old female with moderate LV dysfunction cellulitis obesity hypoventilation non-ST elevation [place] type II renal insufficiency is on IV diuretics and Coreg on aspirin statin medication patient will have a Lexiscan nuclear stress test in a.m. - Patient Problems (1) Morbid obesity Current Visit: Yes Status: Chronic (2) SALONI (acute kidney injury) Current Visit: Yes Status: Acute (3) Acute HFrEF (heart failure with reduced ejection fraction) Current Visit: Yes Status: Acute (4) Cellulitis Current Visit: Yes Status: Acute Qualifiers: Site of cellulitis of extremity: lower extremity Laterality: right (5) NSTEMI (non-ST elevated myocardial infarction) Current Visit: Yes Status: Acute (6) Cardiomyopathy Current Visit: Yes Status: Chronic Qualifiers: Cardiomyopathy type: dilated Qualified Code(s): I42.0 - Dilated cardiomyopathy (7) Moderate mitral regurgitation Current Visit: Yes Status: Chronic (8) Obesity hypoventilation syndrome Current Visit: Yes Status: Chronic (9) Pulmonary hypertension Current Visit: Yes Status: Chronic Subjective Date of service: 08/06/20 Principal diagnosis: HF Interval history: Shortness of breath has improved his walking in the room Objective Vital Signs Temp Pulse Resp BP Pulse Ox 08/06/20 09:41 93 08/06/20 05:14 97.6 F 75 20 114/61 92 08/05/20 23:55 97.8 F 80 18 102/65 92 08/05/20 22:42 80 153/75 08/05/20 22:00 80 20 08/05/20 19:59 97.7 F 80 18 153/75 91 08/05/20 16:38 84 18 122/70 89 08/05/20 10:00 81 95 - Physical Examination General: No Apparent Distress HEENT: Positive: PERRL, Normocephaly, Mucus Membranes Moist, Other (left eye ecchymosis noted ) Neck: Positive: neck supple, trachea midline Cardiac: Positive: Reg Rate and Rhythm Lungs: Positive: clear to auscultation Neuro: Positive: Grossly Intact Abdomen: Negative: Tender Musculoskeletal: other (BLE sores and redness) Extremities: Present: +1 Edema - Labs and Meds Comprehensive Metabolic Panel 08/06/20 Range/Units 04:14 Sodium 140 (137-145) mmol/L Potassium 4.6 D (3.6-5.0) mmol/L Chloride 104.5 (98-107) mmol/L Carbon Dioxide 27 (22-30) mmol/L BUN 26 H (7-17) mg/dL Creatinine 1.8 H (0.6-1.2) mg/dL Glucose 109 H (65-100) mg/dL Calcium 8.7 (8.4-10.2) mg/dL - Imaging and Cardiology EKG: report reviewed, image reviewed Echo: report reviewed (EF 30-35%, restrictive diastolic filling, LA mildly dilated, RV mildly dilated, mild AR, mod MR, mod pulm HTN with RVSP 63mmHg. ) - Telemetry EKG Rhythm: Sinus Rhythm - EKG Sinus rhythms and dysrhythmias: sinus rhythm
[2020-08-06] MEDS: FUROSEMIDE 40 MG/4 ML INJ IV SCH (10:22)
[2020-08-06] MEDS: carvediloL 6.25 MG TAB PO SCH ×2 (10:22→21:52)
[2020-08-06] MEDS: ASPIRIN 325 MG TAB PO SCH (10:22)
[2020-08-06] MEDS: HEPARIN 5,000 UNIT/1 ML VIAL SUB-Q SCH ×2 (10:23→21:53)
--- NOTE | 2020-08-06 13:37 | Progress Note ---
Assessment and Plan --Acute systolic CHF (congestive heart failure) exacerbation Cont CHF protocol: Cardiology team consulted, strict I's/O, monitor urine output every shift, daily weight, afterload reduction, diuretic therapy, supportive care. Echocardiogram (08/01/2020) showed EF 35-40%, grade III diastolic dysfunction and pulmonary HTN. -- SALONI (acute kidney injury) likely due to cardiorenal syndrome vs vasomotor nephropathy -cannot r/o CKD repeat BMP in a.m., Monitor urine output every shift, monitor fluid balance. -- b/l LE Cellulitis with stasis ulcer IV antibiotic therapy, supportive care, wound care consulted. --NSTEMI (non-ST elevated myocardial infarction) Supportive care, serial cardiac enzymes, cardiology team consulted in the ED. Suspected type 2 secondary to CHF. -- Obesity hypoventilation syndrome Balanced diet, increase physical activity at discharge, supportive care. Outpatient pulmonary follow-up for sleep study. -- DVT prophylaxis SCD to bilateral lower extremities while in bed, prophylactic anticoagulation --patient is full code, care plan discussed, prognosis discussed, patient knowledges understanding and agreement with care plan, +30 minutes. Daily Course: 08/03: cont chf protocol with diuresis/monitor ins/os/ daily wt. cont iv abx for cellulitis. follow cardiology recommendation. provide wound care. 08/04: Improved lower extremity erythremia, continue IV antibiotics. Continue CHF protocol. Possible discharge in 1 to 2 days if cleared by cardiology 08/05: Continue IV antibiotics, continue IV Lasix. Cardiology planning for ischemia evaluation. Will follow recommendation. Renal function stable, nephrology following 08/06; CONT IVABX, PLANNED FOR a Lexiscan nuclear stress test in a.m. Subjective Date of service: 08/06/20 Principal diagnosis: HF Interval history: Patient seen and examined Patient has improved SOB, b/l LE erythrema and swelling Planned for stress test in the am Objective - Exam Narrative Exam: General appearance: no acute distress, morbidly obese HEENT: PERRL, Normocephaly, moist Mucus Membranes Moist, Other (left eye ecchymosis noted ) Neck: neck supple, trachea midline Cardiac: Reg Rate and Rhythm, S1/S2 +ve Lungs: b/l Decreased Breath Sounds Neuro: Grossly Intact, no motor deficit Abdomen: no Tenderness, obese Musculoskeletal: + (BLE sores and redness) Extremities: +2 Edema (BLE) - Constitutional Vitals: Vital Signs - 12hr 08/06/20 08/06/20 08/06/20 05:14 09:41 10:00 Temperature 97.6 F Pulse Rate 75 76 Respiratory 20 Rate Blood Pressure 114/61 O2 Sat by Pulse 92 93 Oximetry - Labs CBC & Chem 7: 08/07/20 04:04 08/07/20 04:04 Labs: Abnormal lab results 08/06/20 Range/Units 04:14 BUN 26 H (7-17) mg/dL Creatinine 1.8 H (0.6-1.2) mg/dL Glucose 109 H (65-100) mg/dL HEART Score - HEART Score Troponin: Troponin T 0.551 ng/mL (0.00-0.029) H* 08/05/20 04:07
--- NOTE | 2020-08-06 14:39 | Progress Note ---
Assessment and Plan 1. Acute kidney injury: SALONI in the setting of decompensated CHF. Baseline renal function is unknown, suspect CKD. UA mild proteinuria. Renal US negative for hydro. Monitor renal function. Creatinine level is stable since admission. Avoid nephrotoxic agents. Meds dosage based on GFR. 2. FEN: Volume overload, diuretics. Monitor lytes. 3. Acute decompensated CHF: Strict I's and O's. Echocardiogram (08/01/2020) showed EF 35-40%, grade III diastolic dysfunction and pulmonary HTN. Followed by Cards. 4. NSTEMI: Followed by Cards. 5. LE Cellulitis: Clindamycin. 6. HTN: Monitor BP. 7. OHS: Monitor. Subjective: Patient was seen and examined at the bedside. Doing ok. Examination: General appearance: obese, well-developed, appears stated age, no distress HEENT: Pupils equal, left eye ecchymosis Neck: Trachea midline Respiratory: ctab Cardiology: regular, S1S2, no murmur Gastrointestinal: obese, normoactive bowel sounds, no tenderness, not distended Integumentary: R leg dressing, L leg few scabs Neurologic: alert, conversing, able to move extremities Ext: 1 to 2+ LE pitting edema noted Subjective Date of service: 08/06/20 Principal diagnosis: HF Objective - Vital Signs Vital signs: Vital Signs - 12hr 08/06/20 08/06/20 08/06/20 05:14 08:11 09:41 Temperature 97.6 F Pulse Rate 75 77 Respiratory 20 18 Rate Blood Pressure 114/61 122/68 O2 Sat by Pulse 92 91 93 Oximetry 08/06/20 08/06/20 10:00 11:53 Temperature 97.7 F Pulse Rate 76 69 Respiratory 20 Rate Blood Pressure 100/62 O2 Sat by Pulse 90 Oximetry - Lab 08/07/20 04:04 08/07/20 04:04 Most recent lab results Calcium 8.7 mg/dL (8.4-10.2) 08/06/20 04:14 Phosphorus 3.70 mg/dL (2.5-4.5) 08/05/20 04:07 Magnesium 1.70 mg/dL (1.7-2.3) 08/05/20 04:07 Urine Creatinine 183.1 mg/dL (0.1-20.0) H 08/05/20 11:00 Urine Sodium 73 mmol/L 08/05/20 11:00 Urine Total Protein 59 mg/dL (5-11.8) H 08/05/20 11:00 Medications & Allergies - Medications Allergies/Adverse Reactions: Allergies No Known Allergies Allergy (Unverified 08/02/20 15:36) Active Medications: Generic Name Dose Route Start Last Admin Trade Name Freq PRN Reason Stop Dose Admin Acetaminophen 650 mg 08/02/20 17:37 08/02/20 22:54 Acetaminophen 325 Mg Tab PO 650 mg Q4H PRN Administration Pain MILD(1-3)/Fever >100.5/NOGUERA Al Hydrox/Mg Hydrox/Simethicone 30 ml 08/04/20 20:58 08/06/20 05:12 Alum-Mag Hydroxide-Simethicone [id number]/5ml Oral Liqd 30 Ml PO 30 ml Q4H PRN Administration Indigestion Albuterol 2.5 mg 08/02/20 17:37 Albuterol 2.5 Mg/3 Ml Nebu IH Q4HRT PRN Shortness Of Breath Aspirin 325 mg 08/03/20 11:00 08/06/20 10:22 Aspirin 325 Mg Tab PO 325 mg QDAY LIAN Administration Atorvastatin Calcium 20 mg 08/04/20 22:00 08/05/20 22:42 Atorvastatin 20 Mg Tab PO 20 mg QHS LIAN Administration Carvedilol 6.25 mg 08/04/20 22:00 08/06/20 10:22 Carvedilol 6.25 Mg Tab PO 6.25 mg BID LIAN Administration Furosemide 40 mg 08/05/20 10:00 08/06/20 10:22 Furosemide 40 Mg/4 Ml Inj IV 40 mg QDAY LIAN Administration Heparin Sodium (Porcine) 5,000 unit 08/02/20 22:00 08/06/20 10:23 Heparin 5,000 Unit/1 Ml Vial SUB-Q 5,000 unit Q12HR LIAN Administration Clindamycin HCl 600 mg in 50 mls @ 100 mls/hr 08/03/20 17:00 08/06/20 10:22 Cleocin 600 Mg/50 Ml IV 100 mls/hr Q8H LIAN Administration Protocol Melatonin 5 mg 08/04/20 20:58 08/05/20 22:42 Melatonin 5 Mg Tab PO 5 mg QHS PRN Administration Sleep Ondansetron HCl 4 mg 08/02/20 17:37 08/06/20 05:12 Ondansetron 4 Mg/2 Ml Inj IV 4 mg Q8H PRN Administration Nausea And Vomiting Sodium Chloride 10 ml 08/02/20 22:00 08/06/20 10:23 Sodium Chloride 0.9% 10 Ml Flush Syringe IV 10 ml BID LIAN Administration Sodium Chloride 10 ml 08/02/20 17:37 08/06/20 05:12 Sodium Chloride 0.9% 10 Ml Flush Syringe IV 10 ml PRN PRN Administration LINE FLUSH
[2020-08-06] MEDS: MELATONIN 5 MG TAB PO PRN (21:52)
[2020-08-07] MEDS: CLINDAMYCIN 600 MG/50 mL 600 MG/50 ML BAG IV SCH ×2 (00:30→10:14)
[2020-08-07 05:00] LABS: Basophils # (Auto) 0.1 K/mm3 (0.0-0.1); Basophils % (Auto) 1.4 % (0.0-1.8); Eosinophils # (Auto) 0.1 K/mm3 (0.0-0.4); Eosinophils % (Auto) 1.4 % (0.0-4.3); Hematocrit 39.1 % (30.3-42.9); Hemoglobin 12.5 gm/dl (10.1-14.3); Lymphocytes # (Auto) 1.1 K/mm3 (1.2-5.4); Lymphocytes % (Auto) 21.2 % (13.4-35.0); Mean Corpuscular HGB Conc 32 % (30-34); Mean Corpuscular Volume 88 fl (79-97); Monocytes # (Auto) 0.6 K/mm3 (0.0-0.8); Monocytes % (Auto) 10.6 % (0.0-7.3); Platelet Count 181 K/mm3 (140-440); Red Blood Count 4.43 M/mm3 (3.65-5.03); Red Cell Distribution Width 16.4 % (13.2-15.2)
[2020-08-07 05:10] LABS: Calcium 8.9 mg/dL (8.4-10.2)
[2020-08-07 08:12] VITALS: BP 115/75
[2020-08-07] MEDS ORDERED: REGADENOSON 0.4 MG/5 ML INJ IV ONE ×2 (08:36→08:38)
--- NOTE | 2020-08-07 10:04 | Progress Note ---
Assessment and Plan S/p lexiscan MPI stress test today which showed some apical ischemia. Pt with no complaints of chest pain, ECG with NSR and no acute findings, Frank trending downwards. Given that pt is asymptomatic for ischemia and renal function is impaired, recommend medical management at this time. Can consider coronary angiography as OP if indicated once renal function is optimized. Currently stable cardiac status. Pt may discharge from cardiology standpoint. At discharge, pt would benefit from oral diuretics - will defer to nephrology for recommendations. Cont all other present cardiac management, including ASA 81, statin, coreg, Imdur. No ACEI/ARB at this time in setting of renal insufficiency. Follow up in our [place] office with Dr. Boris Sheets on 08/17/2020 @ 3:15PM. The patient has been seen in conjunction with Dr. Mir who agrees with the assessment and plan of care. - Patient Problems (1) Acute HFrEF (heart failure with reduced ejection fraction) Current Visit: Yes Status: Acute (2) Cardiomyopathy Current Visit: Yes Status: Chronic Qualifiers: Cardiomyopathy type: dilated Qualified Code(s): I42.0 - Dilated cardiomyopathy (3) SALONI (acute kidney injury) Current Visit: Yes Status: Acute (4) NSTEMI (non-ST elevated myocardial infarction) Current Visit: Yes Status: Acute Plan to address problem: suspect type II (5) Cellulitis Current Visit: Yes Status: Acute Qualifiers: Site of cellulitis of extremity: lower extremity Laterality: right (6) Obesity Current Visit: Yes Status: Chronic (7) Obesity hypoventilation syndrome Current Visit: Yes Status: Chronic (8) Former tobacco use Current Visit: Yes Status: Chronic (9) Moderate mitral regurgitation Current Visit: Yes Status: Chronic (10) Pulmonary hypertension Current Visit: Yes Status: Chronic Subjective Date of service: 08/07/20 Principal diagnosis: HF Interval history: pt resting in bed, feeling better. for stress test today. tele reviewed - in SR HR 70s. Objective Last Vital Signs Temp 97.6 F 08/07/20 07:35 Pulse 74 08/07/20 07:35 Resp 18 08/07/20 07:35 BP 115/75 08/07/20 07:35 Pulse Ox 92 08/07/20 07:35 - Physical Examination General: No Apparent Distress HEENT: Positive: PERRL, Normocephaly, Mucus Membranes Moist, Other (left eye ecchymosis noted ) Neck: Positive: neck supple, trachea midline Cardiac: Positive: Reg Rate and Rhythm, S1/S2 Lungs: Positive: Decreased Breath Sounds Neuro: Positive: Grossly Intact Abdomen: Negative: Tender Musculoskeletal: other (BLE sores and redness) Extremities: Present: +1 Edema - Labs and Meds CBC 08/07/20 Range/Units 04:04 WBC 5.3 (4.5-11.0) K/mm3 RBC 4.43 (3.65-5.03) M/mm3 Hgb 12.5 (10.1-14.3) gm/dl Hct 39.1 (30.3-42.9) % Plt Count 181 (140-440) K/mm3 Lymph # (Auto) 1.1 L (1.2-5.4) K/mm3 Bertie # (Auto) 0.6 (0.0-0.8) K/mm3 Eos # (Auto) 0.1 (0.0-0.4) K/mm3 Baso # (Auto) 0.1 (0.0-0.1) K/mm3 Comprehensive Metabolic Panel 08/07/20 Range/Units 04:04 Sodium 140 (137-145) mmol/L Potassium 4.4 (3.6-5.0) mmol/L Chloride 104.7 (98-107) mmol/L Carbon Dioxide 26 (22-30) mmol/L BUN 29 H (7-17) mg/dL Creatinine 2.0 H (0.6-1.2) mg/dL Glucose 94 (65-100) mg/dL Calcium 8.9 (8.4-10.2) mg/dL - Imaging and Cardiology EKG: report reviewed, image reviewed Echo: report reviewed (EF 30-35%, restrictive diastolic filling, LA mildly dilated, RV mildly dilated, mild AR, mod MR, mod pulm HTN with RVSP 63mmHg. ) - Telemetry EKG Rhythm: Sinus Rhythm - EKG Sinus rhythms and dysrhythmias: sinus rhythm
[2020-08-07] MEDS: carvediloL 6.25 MG TAB PO SCH (10:14)
[2020-08-07] MEDS: HEPARIN 5,000 UNIT/1 ML VIAL SUB-Q SCH (10:15)
--- NOTE | 2020-08-07 10:46 | Treadmill Report ---
CARDIAC NUCLEAR PERFUSION STUDY REASON FOR STUDY: Abnormal troponin and CHF. IMAGING PROTOCOL: Single isotope used documented as single isotope protocol. IMAGING RESULTS: Normal cavity size from stress to rest. Normal distribution of radionuclide in the anterior, inferior, septal, lateral, but there is a small area of moderate intensity defect on the stress images compared to rest with global hypokinesis of 35-33%. The patient infused with Lexiscan with no EKG changes. SUMMARY: 1. Negative Lexiscan EKG. 2. The patient has a small area of moderate anterior apical ischemia with normal perfusion, anterior, inferior, septal, lateral with moderate LV dysfunction, EF 33%. Clinically correlate. [facility]# [id number] JAY/AMANDA
--- NOTE | 2020-08-07 11:16 | Progress Note ---
Assessment and Plan 1. Acute kidney injury: SALONI in the setting of decompensated CHF. Baseline renal function is unknown, suspect CKD. UA mild proteinuria. Renal US negative for hydro. Monitor renal function. Slight increase in creatinine level noted. Avoid nephrotoxic agents. Meds dosage based on GFR. 2. FEN: Volume overload, diuretics as needed. Monitor lytes. 3. Acute decompensated CHF: Strict I's and O's. Echocardiogram (08/01/2020) showed EF 35-40%, grade III diastolic dysfunction and pulmonary HTN. Followed by Cards. 4. NSTEMI: Followed by Cards. 5. LE Cellulitis: Clindamycin. 6. HTN: Monitor BP. 7. OHS: Monitor.] If discharged f/u with me in 1-2 weeks. Subjective: Patient was seen and examined at the bedside. Doing ok. Examination: General appearance: obese, well-developed, appears stated age, no distress HEENT: Pupils equal, left eye ecchymosis Neck: Trachea midline Respiratory: ctab Cardiology: regular, S1S2, no murmur Gastrointestinal: obese, normoactive bowel sounds, no tenderness, not distended Integumentary: R leg dressing, L leg few scabs Neurologic: alert, conversing, able to move extremities Ext: 1 to 2+ LE pitting edema noted Subjective Date of service: 08/07/20 Principal diagnosis: HF Objective - Vital Signs Vital signs: Vital Signs - 12hr 08/06/20 08/07/20 08/07/20 23:40 03:31 03:32 Temperature 97.5 F L 98.2 F Pulse Rate 80 73 Respiratory 16 16 Rate Blood Pressure 150/85 98/60 O2 Sat by Pulse 94 85 94 Oximetry 08/07/20 08/07/20 07:35 10:14 Temperature 97.6 F Pulse Rate 74 74 Respiratory 18 Rate Blood Pressure 115/75 115/75 O2 Sat by Pulse 92 Oximetry - Lab 08/07/20 04:04 08/07/20 04:04 Most recent lab results Calcium 8.9 mg/dL (8.4-10.2) 08/07/20 04:04 Phosphorus 3.70 mg/dL (2.5-4.5) 08/05/20 04:07 Magnesium 1.70 mg/dL (1.7-2.3) 08/05/20 04:07 Urine Creatinine 183.1 mg/dL (0.1-20.0) H 08/05/20 11:00 Urine Sodium 73 mmol/L 08/05/20 11:00 Urine Total Protein 59 mg/dL (5-11.8) H 08/05/20 11:00 Medications & Allergies - Medications Allergies/Adverse Reactions: Allergies No Known Allergies Allergy (Unverified 08/02/20 15:36) Active Medications: Generic Name Dose Route Start Last Admin Trade Name Freq PRN Reason Stop Dose Admin Acetaminophen 650 mg 08/02/20 17:37 08/02/20 22:54 Acetaminophen 325 Mg Tab PO 650 mg Q4H PRN Administration Pain MILD(1-3)/Fever >100.5/NOGUERA Al Hydrox/Mg Hydrox/Simethicone 30 ml 08/04/20 20:58 08/06/20 21:51 Alum-Mag Hydroxide-Simethicone [id number]/5ml Oral Liqd 30 Ml PO 30 ml Q4H PRN Administration Indigestion Albuterol 2.5 mg 08/02/20 17:37 Albuterol 2.5 Mg/3 Ml Nebu IH Q4HRT PRN Shortness Of Breath Aspirin 81 mg 08/08/20 10:00 Aspirin 81 Mg Tab Chew PO QDAY [facility] Atorvastatin Calcium 20 mg 08/04/20 22:00 08/06/20 21:51 Atorvastatin 20 Mg Tab PO 20 mg QHS LIAN Administration Carvedilol 6.25 mg 08/04/20 22:00 08/07/20 10:14 Carvedilol 6.25 Mg Tab PO 6.25 mg BID LIAN Administration Heparin Sodium (Porcine) 5,000 unit 08/02/20 22:00 08/07/20 10:15 Heparin 5,000 Unit/1 Ml Vial SUB-Q 5,000 unit Q12HR LIAN Administration Clindamycin HCl 600 mg in 50 mls @ 100 mls/hr 08/03/20 17:00 08/07/20 10:14 Cleocin 600 Mg/50 Ml IV 100 mls/hr Q8H LIAN Administration Protocol Isosorbide Mononitrate 30 mg 08/08/20 10:00 Isosorbide Mononitrate Er 30 Mg Tab PO QDAY [facility] Melatonin 5 mg 08/04/20 20:58 08/06/20 21:52 Melatonin 5 Mg Tab PO 5 mg QHS PRN Administration Sleep Ondansetron HCl 4 mg 08/02/20 17:37 08/06/20 21:51 Ondansetron 4 Mg/2 Ml Inj IV 4 mg Q8H PRN Administration Nausea And Vomiting Sodium Chloride 10 ml 08/02/20 22:00 08/07/20 10:18 Sodium Chloride 0.9% 10 Ml Flush Syringe IV 10 ml BID LIAN Administration Sodium Chloride 10 ml 08/02/20 17:37 08/06/20 05:12 Sodium Chloride 0.9% 10 Ml Flush Syringe IV 10 ml PRN PRN Administration LINE FLUSH
--- NOTE | 2020-08-07 15:34 | Discharge Summary ---
Providers - Providers Date of Admission: 08/02/20 17:37 Date of discharge: 08/07/20 Attending physician: GALLO MC 08/02/20 Consult to Cardiac Rehabilitation [CONS] Routine Reason For Exam: Phase I 08/02/20 17:37 Consult to Physician [CONS] Routine Comment: Consulting Provider: BART RODRIGUEZ Physician Instructions: Reason For Exam: chf 08/02/20 20:15 Consult to Wound/ET Nurse [CONS] Routine Reason For Exam: wound eval 08/03/20 08:55 Physical Therapy Evaluation and Treat [CONS] Routine Comment: Reason For Exam: debility Mode of Transport?: Wheelchair 08/04/20 11:15 Consult to Physician [CONS] Routine Comment: Consulting Provider: THAIS CLEMENS Physician Instructions: Reason For Exam: SALONI Primary care physician: PIPE [employer] Hospitalization Condition: Stable Pertinent studies: CXR renal US 2d echo MPI stress test Hospital course: 74 YO Female with CHF EF 35-40%, grade III diastolic dysfunction, HTN, HLD, morbid Obesity, BLE Cellulitis on oral antibiotic therapy as outpatient presented to ED after having a fall at home with c/o progressive worsening SOB, b/l LE swelling. Patient admitted to telemetry and initiated on CHF protocol. Patient also found to have acute kidney injury, LE cellulitis with stasis ulcer as well as Type II NSTEMI. Daily course: 08/03: cont chf protocol with diuresis/monitor ins/os/ daily wt. cont iv abx for cellulitis. follow cardiology recommendation. provide wound care. 08/04: Improved lower extremity erythremia, continue IV antibiotics. Continue CHF protocol. Possible discharge in 1 to 2 days if cleared by cardiology 08/05: Continue IV antibiotics, continue IV Lasix. Cardiology planning for ischemia evaluation. Will follow recommendation. Renal function stable, nephrology following 08/06; CONT IVABX, PLANNED FOR a Lexiscan nuclear stress test in a.m. 08/07: S/p lexiscan MPI stress test today which showed some apical ischemia. Per cardiology: Pt with no complaints of chest pain, ECG with NSR and no acute findings, Frank trending downwards. Given that pt is asymptomatic for ischemia and renal function is impaired, recommended medical management at this time. Patient will be considered for coronary angiography as OP if indicated once renal function is optimized. Nephrology recommended no diuretics or ACEI on discharge, outpt f/u in a week with repeat BMP. Patient was throughly discussed with the dischage plan and she was agreeable with the plan. Patient was then discharged home in stable condition with outpt followup. Discharge diagnosis: Acute HFrEF (heart failure with reduced ejection fraction) SALONI (acute kidney injury), likely cardiorenal syndrom vs vasomotor nephropathy - patient also has underlying CKD NSTEMI type 2 B/L LE cellulitis with stasis ulcer Obesity hypoventilation syndrome Morbid obesity Former tobacco use Disposition: [id number] HOME UNDER [facility] Time spent for discharge: 34 minutes Core Measure Documentation - Palliative Care Palliative Care/ Comfort Measures: Not Applicable - Core Measures Any of the following diagnoses?: heart failure - Heart Failure Discharge Requirements KRISTA/ARB for LVSD if EF <40%: No Reason for no KRISTA/ARB: Renal impairment Beta tuan at discharge: Yes Exam - Physical Exam Narrative exam: General appearance: no acute distress, morbidly obese HEENT: PERRL, Normocephaly, moist Mucus Membranes Moist, Other (left eye ecchymosis noted ) Neck: neck supple, trachea midline Cardiac: Reg Rate and Rhythm, S1/S2 +ve Lungs: b/l Decreased Breath Sounds Neuro: Grossly Intact, no motor deficit Abdomen: no Tenderness, obese Musculoskeletal: + (BLE sores and redness) Extremities: +1 Edema (BLE) - Constitutional Vitals: Temp Pulse Resp BP Pulse Ox 97.6 F 74 18 115/75 92 08/07/20 07:35 08/07/20 10:14 08/07/20 07:35 08/07/20 10:14 08/07/20 07:35 Plan Activity: fall precautions Weight Bearing Status: Non-Weight Bearing Diet: low fat, low salt Special Instructions: restrict fluid intake to (1.2L per day), record daily weights, physical therapy, home health RN Additional Instructions: Follow-up with cardiology in 1 week for post hospital discharge follow-up. Need repeat BMP in 1 week, follow-up with nephrology Plan of Treatment: [facility] at [facility] [phone] Follow up with: BRYAN MOE MD [Primary Care Provider] - 7 Days ALBERTO VAN MD [Staff Physician] - 7 Days THAIS CLEMENS MD [Staff Physician] - 7 Days Prescriptions: AtorvaSTATin [Lipitor] 20 mg PO QHS #30 tablet Melatonin [Melatonin 5MG TAB] 5 mg PO QHS PRN #30 tablet PRN Reason: Sleep carvediloL [Coreg] 6.25 mg PO BID #60 tablet Aspirin EC [Halfprin EC] 81 mg PO QDAY #30 tablet. ISOSORBIDE MONOnitrate [Imdur ER] 30 mg PO QDAY #30 tablet cephALEXin [Keflex] 500 mg PO Q12HR #10 cap
[2020-08-08] MEDS ORDERED: ASPIRIN 81 MG TAB CHEW PO SCH (10:00)
== END 2020-08-07 17:22 | disposition home health service (06) | DRG 280 ==
LOC: ED 14:49 → 4A 17:37
PROVIDERS: ADMIT Internal Medicine; ATTEND Internal Medicine
DX: I11.0 Hypertensive heart disease with heart failure (principal); N17.0 Acute kidney failure with tubular necrosis; I21.A1 Myocardial infarction type 2; E66.2 Morbid (severe) obesity with alveolar hypoventilation; L03.116 Cellulitis of left lower limb; L03.115 Cellulitis of right lower limb; Z68.42 Body mass index [BMI] 45.0-49.9, adult; L97.819 Non-pressure chronic ulcer of other part of right lower leg with unspecified severity; L97.829 Non-pressure chronic ulcer of other part of left lower leg with unspecified severity; I50.23 Acute on chronic systolic (congestive) heart failure; I42.9 Cardiomyopathy, unspecified; I27.20 Pulmonary hypertension, unspecified; S05.12XA Contusion of eyeball and orbital tissues, left eye, initial encounter; I34.0 Nonrheumatic mitral (valve) insufficiency; I87.2 Venous insufficiency (chronic) (peripheral); G47.00 Insomnia, unspecified; E78.5 Hyperlipidemia, unspecified; Z99.3 Dependence on wheelchair; Z90.49 Acquired absence of other specified parts of digestive tract; Z90.710 Acquired absence of both cervix and uterus; Z87.891 Personal history of nicotine dependence; X58.XXXA Exposure to other specified factors, initial encounter; Y93.89 Activity, other specified; Y92.89 Other specified places as the place of occurrence of the external cause; Y99.8 Other external cause status
CPT/HCPCS: 36415; 71045; 76770; 78452; 80048; 80053; 80061; 81001; 82570; 83036; 83735; 83880; 83970; 84100; 84156; 84300; 84439; 84443; 84484; 85025; 87040; 87086; 93005; 93017; 93306; 94640; 96365; G0378; A9270-GY; A9502; J1644; J1940; J2405; J2785